=== PATIENT | male | born 1955 | race Caucasian/White ===

== ENCOUNTER 2016-07-04 01:35 | Emergency (ER) | payer OTHER, MEDICARE ==
[2016-07-04] MEDS ORDERED: ASPIRIN 81 MG TABLET, CHEWABLE PO ONE (02:02)
[2016-07-04 02:24] LABS: ABSOLUTE BASOPHILS # (AUTO) 0.1 10^3/uL (0.0-0.2); ABSOLUTE EOSINOPHILS # (AUTO) 0.2 10^3/uL (0.0-0.6); ABSOLUTE LYMPHOCYTES (AUTO) 2.1 10^3/uL (0.5-4.7); ABSOLUTE MONOCYTES (AUTO) 0.9 10^3/uL (0.1-1.4); BASOPHILS % (AUTO) 0.6 % (0-2); EOSINOPHILS % (AUTO) 1.9 % (0-6); HEMATOCRIT 43.4 % (37.9-51.0); HEMOGLOBIN 14.7 g/dL (13.5-17.0); HGB HCT DIFFERENCE 0.7; LYMPHOCYTES % (AUTO) 22.5 % (13-45); MEAN CORPUSCULAR HEMOGLOBIN 29.7 pg (27.0-33.4); MEAN CORPUSCULAR HGB CONC 33.7 g/dL (32.0-36.0); MEAN CORPUSCULAR VOLUME 88 fl (80-97); MONOCYTES % (AUTO) 9.6 % (3-13); RED BLOOD COUNT 4.94 10^6/uL (4.35-5.55); RED CELL DISTRIBUTION WIDTH 13.1 % (11.5-14.0); SEGMENTED NEUTROPHILS % (AUTO) 65.4 % (42-78); WHITE BLOOD COUNT 9.2 10^3/uL (4.0-10.5)
[2016-07-04 02:33] LABS: ALANINE AMINOTRANSFERASE 51 U/L (21-72); ALBUMIN 3.7 g/dL (3.5-5.0); ALKALINE PHOSPHATASE 93 U/L (38-126); ANION GAP 11 (5-19); ASPARTATE AMINO TRANSFERASE 34 U/L (17-59); BILIRUBIN,DIRECT 0.4 mg/dL (0.0-0.4); BILIRUBIN,TOTAL 0.7 mg/dL (0.2-1.3); BLOOD UREA NITROGEN 13 mg/dL (7-20); CALCIUM 9.1 mg/dL (8.4-10.2); CARBON DIOXIDE 23 mmol/L (22-30); CHLORIDE 103 mmol/L (98-107); CREATINE KINASE 56 U/L (55-170); CREATININE RESULT 0.69 mg/dL (0.52-1.25); GLUCOSE 305 mg/dL (75-110); POTASSIUM 4.2 mmol/L (3.6-5.0); SODIUM 136.9 mmol/L (137-145); TOTAL PROTEIN 7.2 g/dL (6.3-8.2)
--- NOTE | 2016-07-04 02:38 | ER Document Report ---
ED General - General Chief Complaint: Chest Pain Stated Complaint: CHEST/NECK PAIN Time Seen by Provider: 07/04/16 02:36 Information source: Patient TRAVEL OUTSIDE OF THE [place] IN LAST 30 DAYS: No - HPI Notes: 1-year-old male with history of coronary artery disease and placement in [facility] last October. He presents with shoulder and neck pain posteriorly that started approximately 3 hours ago while at rest. He has some mild shortness of breath and nausea associated. The pain is slowly easing off but still present currently. When it is at its most severe he does have some upper sternal discomfort. That is not present currently. This feels similar to his myocardial infarction he suffered October 2015. He does take Plavix but his nitroglycerin was old. He has no other alleviating or exacerbating symptoms otherwise. - Related Data Allergies/Adverse Reactions: No Known Allergies Allergy (Verified 12/18/15 09:59) Past Medical History - Social History Smoking Status: Never Smoker Frequency of alcohol use: Occasional Drug Abuse: None Family History: Reviewed & Not Pertinent - Past Medical History Cardiac Medical History: Reports: Hx Coronary Artery Disease, Hx Heart Attack - cardiac stent placed, Hx Hypertension Pulmonary Medical History: Denies: Hx Asthma, Hx Bronchitis, Hx COPD, Hx Pneumonia Neurological Medical History: Denies: Hx Cerebrovascular Accident, Hx Seizures Endocrine Medical History: Reports: Hx Diabetes Mellitus Type 2 GI Medical History: Reports: Hx Crohn's Disease Musculoskeltal Medical History: Denies Hx Arthritis Past Surgical History: Reports: Hx Cardiac Catheterization, Hx Orthopedic Surgery - Left Ankle - Immunizations Hx Diphtheria, Pertussis, Tetanus Vaccination: Yes Review of Systems - Review of Systems -: Yes All other systems reviewed and negative Physical Exam - Vital signs Vitals: Temp Resp BP Pulse Ox 98.3 F 16 151/92 H 94 07/04/16 02:11 07/04/16 02:11 07/04/16 02:11 07/04/16 02:11 Notes: See Nurse's note - Notes Notes: Physical Exam: GENERAL: VS as per nursing doc. non toxic appearing, morbidly obese male in no acute distress. HEAD: Atraumatic, normocephalic. EYES: Pupils equal round and reactive to light, extraocular movements intact, sclera anicteric, no conjunctival injection or discharge. ENT: Nares patent, oropharynx clear without exudates. Moist mucous membranes. NECK: Normal range of motion, supple without lymphadenopathy. No JVD. No Carotid Bruits. LUNGS: Breath sounds clear to auscultation bilaterally and equal. No wheezes rales or rhonchi. chest Nontender HEART: Normal S1S2. Regular rate and rhythm without murmurs. Equal peripheral pulses. ABDOMEN: Soft, non-tender. EXTREMITIES: Normal range of motion. No calf tenderness. Negative Homans. Trace edema. NEUROLOGICAL: Cranial nerves grossly intact. Normal speech. Normal sensory and motor exams. No gross cerebellar abnormalities. PSYCH: Normal mood, normal affect. SKIN: Warm, dry, no cyanosis, no splinter hemorrhages. Cap refill < 2 sec. Course - Re-evaluation Re-evalutation: 07/04/16 06:24 The patient still remains pain-free after 2 nitroglycerin with some maintenance tase of 1 inch. Vitals have remained stable. Though the stents had been put in at [facility] in [facility] last October, family request transfer to [facility]. I have contacted the transfer center and they will have someone return my call regarding this. 07/04/16 06:25 Besides Plavix the patient reports being on an anti- coagulant that is not Coumadin but was started due to atrial fibrillation. 07/04/16 07:20 After review of the chart I cannot find any anticoagulants. The family states he takes this in the morning so we will go on with Lovenox 1 mg/kg. - Vital Signs Vital signs: Temp Pulse Resp BP Pulse Ox 98.3 F 14 128/84 H 98 07/04/16 02:11 07/04/16 06:51 07/04/16 06:51 07/04/16 06:51 - Laboratory Result Diagrams: 07/04/16 02:11 07/04/16 02:11 Laboratory results interpreted by me: 07/04/16 02:11 Sodium 136.9 L Glucose 305 H - Diagnostic Test Radiology reviewed: Image reviewed, Reports reviewed - No acute process noted - EKG Interpretation by Me EKG shows normal: Sinus rhythm Rate: Normal - Rate 73, normal normal sinus rhythm mild ST depression more anteriorly this appears consistent with October 30, 2015
[2016-07-04] MEDS ORDERED: NITROGLYCERIN 0.4 MG/TAB 25 TAB/BOTTLE SL PRN (02:43)
[2016-07-04 02:45] LABS: CREATINE KINASE MB 1.43 ng/mL (<4.55)
[2016-07-04 02:51] LABS: TROPONIN I 0.072 ng/mL
[2016-07-04] MEDS ORDERED: ENOXAPARIN SODIUM INJ 120 MG/0.8 ML DISP.SYRIN SUBCUT ONE (07:30)
[2016-07-04 09:36] VITALS: BP 140/86
--- NOTE | 2016-07-04 09:51 | ER Document Report ---
Doctor's Note Notes: 07/04/16 09:49 Patient signed out to me pending disposition and transfer to [facility]. Dr. Andres attempted to contact [facility] for transfer per patient's request at [phone]. They stated that her wind project manager was an emergency procedure and will call back. I received a phone call back from Dr. Sarkar approximately [address] Andres left who accepted the patient. Patient presented with chest pain neck shoulder pain about 3 hours prior to arrival has been seen and evaluated by it last year had a stent placed but wanted to go to [facility] not provided. Continue Nitropaste and nitro pain free initial troponin was 0.07 second troponin 0.85. Patient is on Plavix given Lovenox here some sort of anticoagulation but has not taken it since yesterday. He has been chest pain-free and hemodynamically stable with no acute ST elevation or depression. He has been accepted by Dr. Brown in transfer and palate form is completed. Patient is stable chest pain-free in no acute distress.
--- NOTE | 2016-07-04 10:38 | EKG REPORT ---
SEVERITY:- OTHERWISE NORMAL ECG - SINUS RHYTHM BORDERLINE LEFT AXIS DEVIATION : Confirmed by: Joanna Cramer MD 04-Jul-2016 10:37:43
== END 2016-07-04 10:00 | disposition short-term general hospital (02) ==
LOC: ER 01:35
DX: I24.9 Acute ischemic heart disease, unspecified (principal); I10 Essential (primary) hypertension; I48.91 Unspecified atrial fibrillation; I25.10 Atherosclerotic heart disease of native coronary artery without angina pectoris; I25.2 Old myocardial infarction; E66.01 Morbid (severe) obesity due to excess calories; R06.02 Shortness of breath; M54.2 Cervicalgia; M25.519 Pain in unspecified shoulder; R11.0 Nausea; E11.9 Type 2 diabetes mellitus without complications; Z98.61 Coronary angioplasty status; Z79.02 Long term (current) use of antithrombotics/antiplatelets
CPT/HCPCS: 93005; 99285; 96372; 36415; 82553; 82962; 82550; 85025; 80053; 84484; 71010; 93010; J1650

== ENCOUNTER 2017-03-10 09:20 | Day surgery (SDC) | payer MEDICARE, MEDICAID ==
[~2017-03-10 09:20] MED LIST: PROPOFOL INJ 200 MG/20 ML VIAL IV ONE
[2017-03-10] MEDS ORDERED: PROPOFOL INJ 200 MG/20 ML VIAL IV ONE (11:16)
[2017-03-10 11:44] VITALS: BP 129/85
--- NOTE | 2017-03-10 12:31 | Operative Report ---
Operative Report DATE OF SURGERY: 03/10/17 Operative Report: The risks, benefits and alternatives of the procedure including risks of bleeding, perforation requiring surgery are explained to the patient in detail and informed consent was obtained. Patient was taken back to the endoscopy suite and placed in the left, lateral decubital position. A rectal examination is done which did not reveal any masses tears or fissures. Timeout was called. Propofol medications administered. An Olympus videoscope was inserted into the patient's rectum the scope is then carefully advanced all the way to the cecum. The cecum was identified by the usual anatomical landmarks including the ileocecal valve as well as the appendiceal office. Photodocumentation is obtained. The scope was then sequentially pulled back via the various segments of the colon including the ascending colon, hepatic flexure, transverse colon, splenic flexure, descending colon and finding to the rectosigmoid portions of the colon. Retroflexion maneuvers performed. PREOPERATIVE DIAGNOSIS: History of Crohn's disease for evaluation of colorectal cancer POSTOPERATIVE DIAGNOSIS: Colon polyp noted in the cecum removed via snare polypectomy. Healed fistula. Still some areas of granulomatous disease noted in the area of the sigmoid and in the rectum, status post biopsy. Surveillance colonoscopy in 1 year OPERATION: Colonoscopy with snare polypectomy. Colonoscopy with biopsy SURGEON: MARCOS PATTERSON ANESTHESIA: LMAC TISSUE REMOVED OR ALTERED: As noted above. COMPLICATIONS: None. ESTIMATED BLOOD LOSS: None. INTRAOPERATIVE FINDINGS: As noted above. PROCEDURE: Patient tolerated procedure well. No immediate postprocedure complications are noted. Patient discharged in good condition. Discharge date 03/10/2017. Discharge diet: Regular. Discharge activity: Regular. 2-3 week follow-up to discuss findings. Patient is instructed to call the office or proceed to the emergency room should there be any further problems or questions. We will await pathology. 1 year surveillance colonoscopy. May have to increase his Humira to once weekly.
--- NOTE | 2017-03-10 23:32 | EKG REPORT ---
SEVERITY:- ABNORMAL ECG - SINUS RHYTHM FIRST DEGREE AV BLOCK BORDERLINE PROLONGED QT INTERVAL : Confirmed by: Angela [email or web address] 10-Mar-2017 23:31:19
== END 2017-03-10 12:00 | disposition home or self-care (01) ==
LOC: END 09:20
PROVIDERS: ATTEND Internal Medicine Gastroenterology
PROC: 0DBH8ZX Excision of Cecum, Via Natural or Artificial Opening Endoscopic, Diagnostic (ICD-10-PCS; principal; 2017-03-10 11:30)
PROC: 0DBN8ZX Excision of Sigmoid Colon, Via Natural or Artificial Opening Endoscopic, Diagnostic (ICD-10-PCS; 2017-03-10 11:30)
DX: D12.8 Benign neoplasm of rectum (principal); D12.0 Benign neoplasm of cecum; E78.5 Hyperlipidemia, unspecified; E11.9 Type 2 diabetes mellitus without complications; I10 Essential (primary) hypertension; K50.90 Crohn's disease, unspecified, without complications; G62.9 Polyneuropathy, unspecified; Z79.899 Other long term (current) drug therapy
CPT/HCPCS: 45380; 45385; 82962; 88305 ×2; 93005; 93010; J2704; 811

== ENCOUNTER → 2017-05-27 | Outpatient (CLI) | payer MEDICARE, MEDICAID ==
[2017-05-27 19:01] LABS: ABSOLUTE BASOPHILS # (AUTO) 0.1 10^3/uL (0.0-0.2); ABSOLUTE EOSINOPHILS # (AUTO) 0.1 10^3/uL (0.0-0.6); ABSOLUTE LYMPHOCYTES (AUTO) 2.2 10^3/uL (0.5-4.7); ABSOLUTE MONOCYTES (AUTO) 0.9 10^3/uL (0.1-1.4); ABSOLUTE NEUT (AUTO) 6.2 10^3/uL (1.7-8.2); BASOPHILS % (AUTO) 0.6 % (0-2); EOSINOPHILS % (AUTO) 1.4 % (0-6); HEMOGLOBIN 15.4 g/dL (13.5-17.0); LYMPHOCYTES % (AUTO) 23.4 % (13-45); MEAN CORPUSCULAR HEMOGLOBIN 30.4 pg (27.0-33.4); MEAN CORPUSCULAR HGB CONC 33.5 g/dL (32.0-36.0); MEAN CORPUSCULAR VOLUME 91 fl (80-97); MONOCYTES % (AUTO) 9.8 % (3-13); PLATELET COUNT 244 10^3/uL (150-450); RED BLOOD COUNT 5.07 10^6/uL (4.35-5.55); RED CELL DISTRIBUTION WIDTH 12.9 % (11.5-14.0); SEGMENTED NEUTROPHILS % (AUTO) 64.8 % (42-78); TOTAL CELLS COUNTED % (AUTO) 100 %; WHITE BLOOD COUNT 9.6 10^3/uL (4.0-10.5)
[2017-05-27 19:30] LABS: ALANINE AMINOTRANSFERASE 49 U/L (21-72); ALKALINE PHOSPHATASE 86 U/L (38-126); ANION GAP 9 (5-19); ASPARTATE AMINO TRANSFERASE 32 U/L (17-59); BILIRUBIN,DIRECT 0.4 mg/dL (0.0-0.4); BILIRUBIN,TOTAL 0.6 mg/dL (0.2-1.3); BLOOD UREA NITROGEN 16 mg/dL (7-20); CALCIUM 9.6 mg/dL (8.4-10.2); CARBON DIOXIDE 30 mmol/L (22-30); CHLORIDE 101 mmol/L (98-107); GLUCOSE 205 mg/dL (75-110); POTASSIUM 4.3 mmol/L (3.6-5.0); SODIUM 140.4 mmol/L (137-145); TOTAL PROTEIN 7.3 g/dL (6.3-8.2)
[2017-05-27 19:33] LABS: C-REACTIVE PROTEIN < 5.0 mg/L (<10.0)
[2017-05-27 19:42] LABS: ERYTHROCYTE SEDIMENTATION RATE 31 mm/hr (0-20)
== END ==
LOC: OD 18:04
PROVIDERS: ATTEND Family Medicine
DX: M25.50 Pain in unspecified joint (principal)
CPT/HCPCS: 36415; 80053; 85025; 85652; 86038; 86140; 86430

== ENCOUNTER → 2019-07-22 | Outpatient (CLI) | payer OTHER, MEDICARE | LOC: OD 15:07 | PROVIDERS: ATTEND Internal Medicine Gastroenterology | DX: K50.80 Crohn's disease of both small and large intestine without complications (principal) | CPT/HCPCS: 36415; 85652; 86140 ==

== ENCOUNTER 2019-08-25 07:57 | Day surgery (SDC) | payer MEDICARE, OTHER ==
[2019-08-25] MEDS ORDERED: PROPOFOL INJ 200 MG/20 ML VIAL IV ONE (08:00)
[2019-08-25 10:53] VITALS: BP 119/74
--- NOTE | 2019-08-25 10:55 | Operative Report ---
Operative Report DATE OF SURGERY: 08/25/19 Operative Report: The risk, benefits and alternatives of the procedure including the risk of bleeding, perforation requiring surgery have been explained to the patient in detail and informed consent has been obtained. The patient is placed in a left, lateral decubital position. Timeout was called. Propofol medication is administered. Rectal examination is done which did not reveal any masses, tears or fissures. An Olympus videoscope was introduced into the patient's rectum. Scope was then carefully advanced all the way to the cecum. Cecum was identified by the usual anatomical landmarks including the ileocecal valve as well as the appendiceal office. Photodocumentation is obtained. Scope was then sequentially pulled back via the various segments of the colon including the ascending colon, hepatic flexure, transverse colon, splenic flexure, descending colon and finally into the rectosigmoid portions of the colon. Retroflexion maneuver is performed. PREOPERATIVE DIAGNOSIS: Previous history of inflammatory bowel disease with fist bandar formation, patient has been on biological therapy recently had a flare of his disease POSTOPERATIVE DIAGNOSIS: Internal hemorrhoids. Healed fistula noted. Appears to have a flare from 0 to approximately 15 cm. Biopsies obtained. OPERATION: Colonoscopy with biopsy SURGEON: MARCOS PATTERSON - Proceed tomorrow ANESTHESIA: LMAC TISSUE REMOVED OR ALTERED: As noted above. COMPLICATIONS: None. ESTIMATED BLOOD LOSS: None. INTRAOPERATIVE FINDINGS: As noted above. PROCEDURE: Patient tolerated the procedure well. No immediate postprocedure complications are noted. Patient is discharged in good condition. Discharge date 08/25/2019. Discharge diet: Regular. Discharge activity: Regular. 2 to 3-week follow-up to discuss findings. Patient is instructed call the office or proceed to the emergency room should there be any further problems or questions. Wait on the pathology.
== END 2019-08-25 11:34 | disposition home or self-care (01) ==
LOC: END 07:57
PROVIDERS: ATTEND Internal Medicine Gastroenterology
DX: K63.3 Ulcer of intestine (principal); K64.8 Other hemorrhoids; K50.90 Crohn's disease, unspecified, without complications; I25.10 Atherosclerotic heart disease of native coronary artery without angina pectoris; G47.33 Obstructive sleep apnea (adult) (pediatric); E11.9 Type 2 diabetes mellitus without complications; Z03.818 Encounter for observation for suspected exposure to other biological agents ruled out; E78.5 Hyperlipidemia, unspecified; I10 Essential (primary) hypertension; Z79.82 Long term (current) use of aspirin; Z79.4 Long term (current) use of insulin; Z79.899 Other long term (current) drug therapy
CPT/HCPCS: 45380; 82962; 88305 ×2; 00811; U0003; J2704; C9803; 811; 87635